=== PATIENT | female | born 1965 | race Caucasian/White ===

== ENCOUNTER 2017-06-23 16:07 | Emergency (ER) | payer OTHER ==
[~2017-06-23] VITALS: Ht 177.8 cm; Wt 64.4 kg
[~2017-06-23 16:07] MED LIST: Atarax10 MG
[2017-06-23] MEDS ORDERED: Augmentin 875-1 EACH PO (17:13)
== END 2017-06-23 18:52 | disposition home or self-care (01) ==
LOC: ER 16:07
DX: S61.552A Open bite of left wrist, initial encounter (principal); S60.871A Other superficial bite of right wrist, initial encounter; S61.452A Open bite of left hand, initial encounter; S61.051A Open bite of right thumb without damage to nail, initial encounter; Z87.891 Personal history of nicotine dependence; W54.0XXA Bitten by dog, initial encounter
CPT/HCPCS: 12004; 73110; 73130; 90471; 90714; 99283

== ENCOUNTER 2021-12-20 11:52 | Day surgery (SDC) | payer OTHER ==
[~2021-12-20] VITALS: Ht 177.8 cm; Wt 61.2 kg
[~2021-12-20 11:52] MED LIST changes: +Augmentin 875-1 EACH PO
[2021-12-20] MEDS ORDERED: CLIMARA1 EACH (12:23)
[2021-12-20] MEDS ORDERED: PROG100 (12:23)
== END 2021-12-20 14:00 | disposition home or self-care (01) ==
LOC: ORSCSDS 11:52
PROVIDERS: Surgery
PROC: 0DJD8ZZ Inspection of Lower Intestinal Tract, Via Natural or Artificial Opening Endoscopic (ICD-10-PCS; principal; 2021-12-20 13:00)
DX: Z86.010 Personal history of colon polyps (principal); Z12.11 Encounter for screening for malignant neoplasm of colon; L40.9 Psoriasis, unspecified; Z79.899 Other long term (current) drug therapy
CPT/HCPCS: J2704; J7120